=== PATIENT | female | born 1945 | race Caucasian/White ===

== ENCOUNTER → 2022-02-15 07:11 | Outpatient (CLI) | payer BC, SELFPAY ==
[2022-02-15 07:42] LABS: Add Manual Diff / Slide Review NO; Basophils Absolute Auto 0 /uL (0-100); Basophils Percent Auto 0.6 % (0-2); Eosinophils Absolute Auto 100 /uL (0-450); Hematocrit 42.4 % (36-46); Hemoglobin 14.5 g/dL (12.0-16.0); Lymphocytes Absolute Auto 1700 /uL (1100-4500); Lymphocytes Percent Auto 33.4 % (25-40); Mean Corpuscular HGB Conc 34.2 % (30-36); Mean Corpuscular Hemoglobin 33.1 PG (26-34); Mean Corpuscular Volume 96.9 fL (80-100); Monocytes Absolute Auto 300 /uL (0-900); Monocytes Percent Auto 6.4 % (3-14); Neutrophils Absolute Auto 3100 /uL (1500-7000); Neutrophils Percent Auto 58.6 % (50-75); Platelet Count 208 X10^3/uL (150-400); Red Blood Cell Count 4.37 X10^6/uL (4.0-5.2); White Blood Cell Count 5.2 X10^3/uL (4.5-11.0)
[2022-02-15 07:58] LABS: Alanine Aminotransferase 21 IU/L (<35); Albumin Globulin Ratio 1.7 (1.0-2.8); Alkaline Phosphatase 86 U/L (38-126); Aspartate Aminotransferase 29 IU/L (14-36); BUN Creatinine Ratio 32.2 (6-22); Bilirubin Total 0.5 mg/dL (0.2-1.3); Blood Urea Nitrogen 19 mg/dL (7-17); Carbon Dioxide 31 mmol/L (22-32); Chloride 108 mmol/L (98-107); Cholesterol 161 mg/dL (140-199); Estimated Glomerular Filt Rate > 60 mL/min (>60); Globulin 2.4 g/dL (1.7-4.1); Glucose 102 mg/dL (80-110); HDL Cholesterol 84 mg/dL (40-60); HEMOLYSIS < 15 (0-50); LDL Cholesterol Calculated 61 mg/dL (<100); Potassium 4.4 mmol/L (3.4-5.1); Sodium 142 mmol/L (137-145); Total Protein 6.4 g/dL (6.3-8.2); Triglycerides 79 mg/dL (35-150)
[2022-02-15 08:11] LABS: Vitamin D 25 Hydroxy (D3) 102 ng/mL (30.0-100.0)
[2022-02-15 08:13] LABS: Free T3, Triiodothyronine Free 2.46 pg/mL (2.77-5.27)
[2022-02-15 08:27] LABS: Thyroid Stimulating Hormone 3.22 uIU/mL (0.47-4.68)
== END ==
PROVIDERS: PCP Family Medicine; Referring Provider Family Medicine; Visit Provider Family Medicine
DX: E03.9 Hypothyroidism, unspecified (principal); E78.2 Mixed hyperlipidemia; I10 Essential (primary) hypertension; M85.80 Other specified disorders of bone density and structure, unspecified site; E55.9 Vitamin D deficiency, unspecified
CPT/HCPCS: 36415; 80053; 80061; 82306; 84439; 84443; 84481; 85025

== ENCOUNTER → 2022-04-05 11:33 | Outpatient (CLI) | payer BC, SELFPAY ==
--- NOTE | 2022-04-05 11:35 | DI.RAD.S_ITS ---
PROCEDURE: XR DEXA AXIAL SKELETON INDICATIONS: osteopenia COMPARISON: None. FINDINGS: This blank DEXA report has been sent in error by the PACS system. The correct and complete report will be forthcoming in 1-2 days. Thank you for your patience and understanding. Dictated by: Sb Ross M.D. on 04/05/2022 at 13:38 Transcribed by: MARK on 04/05/2022 at 13:38 Approved by: Sb Ross M.D. on 04/08/2022 at 15:18
== END ==
PROVIDERS: PCP Family Medicine; Referring Provider Family Medicine; Visit Provider Family Medicine
DX: Z13.820 Encounter for screening for osteoporosis (principal); M85.851 Other specified disorders of bone density and structure, right thigh; M85.852 Other specified disorders of bone density and structure, left thigh; Z78.0 Asymptomatic menopausal state; Z92.23 Personal history of estrogen therapy; Z90.710 Acquired absence of both cervix and uterus
CPT/HCPCS: 77080

== ENCOUNTER → 2022-07-09 15:18 | Outpatient (CLI) | payer BC, SELFPAY ==
--- NOTE | 2022-07-09 15:18 | DI.MG.S_ITS ---
BILATERAL DIGITAL SCREENING MAMMOGRAM 3D/2D WITH CAD: 07/09/2022 CLINICAL: Routine screening. No prior exams were available for comparison. There are scattered areas of fibroglandular density in both breasts (category b / 25%-50% glandular tissue). Current study was also evaluated with a Computer Aided Detection (CAD) system. There is an oval equal density asymmetry with a circumscribed margin in the left breast at 12 o'clock posterior depth. There also are grouped fine heterogeneous calcifications in the left breast central to the nipple anterior depth. No other significant masses, calcifications, or other findings are seen in either breast. IMPRESSION: INCOMPLETE: NEEDS ADDITIONAL IMAGING EVALUATION The oval equal density asymmetry in the left breast at 12 o'clock posterior depth is indeterminate. Additional views with possible ultrasound are recommended. The grouped fine heterogeneous calcifications in the left breast central to the nipple anterior depth are indeterminate. Magnification and lateromedial views are recommended. Based on the Tyrer Cuzick model (a risk assessment model) the patient's lifetime risk is 3.1% and her 10 year risk is 0.0%. According to the ACR, ACS, and NCCN guidelines, an annual breast MRI exam along with mammogram is recommended if the patient's lifetime risk is 20% or greater. This exam was interpreted at Station ID: [id number]. NOTE: For mammograms, a report in lay terms will be sent to the patient. Approximately 15% of breast malignancies will not be visualized mammographically. In the management of a palpable breast mass, a negative mammogram must not discourage biopsy of a clinically suspicious lesion. Electronically Signed By: Marilyn jones/shivani:07/10/2022 14:27:45 letter sent: Additional Imaging Needed ACR BI-RADS Category 0: Incomplete 3340F
== END ==
PROVIDERS: PCP Family Medicine; Referring Provider Family Medicine; Visit Provider Family Medicine
DX: Z12.31 Encounter for screening mammogram for malignant neoplasm of breast (principal)
CPT/HCPCS: 77063; 77067

== ENCOUNTER → 2022-08-05 11:58 | Outpatient (CLI) | payer BC, SELFPAY ==
--- NOTE | 2022-08-05 | DI.MG.S_ITS ---
UNILATERAL LEFT DIGITAL DIAGNOSTIC MAMMOGRAM 3D/2D WITH ADDITIONAL VIEWS: 08/05/2022 CLINICAL: Additional evaluation requested from prior study. Comparison is made to exam dated: 07/09/2022 mammogram - [facility]. There are scattered areas of fibroglandular density in the left breast (category b / 25%-50% glandular tissue). There is an oval equal density asymmetry with a circumscribed margin in the left breast at 12 o'clock posterior depth. This is seen in additional views. There also are grouped fine linear calcifications in the left breast central to the nipple anterior depth. No other significant masses or calcifications are seen in the breast. IMPRESSION: INCOMPLETE: NEEDS ADDITIONAL IMAGING EVALUATION The oval equal density asymmetry in the left breast at 12 o'clock posterior depth is indeterminate. A targeted ultrasound of the left breast is recommended and will be performed immediately following this exam. The grouped fine calcifications in the left breast central to the nipple anterior depth likely represent early secretory calcifications and are probably benign. A follow-up in 6 months is recommended. Based on the Tyrer Cuzick model (a risk assessment model) the patient's lifetime risk is 3.1% and her 10 year risk is 0.0%. According to the ACR, ACS, and NCCN guidelines, an annual breast MRI exam along with mammogram is recommended if the patient's lifetime risk is 20% or greater. This exam was interpreted at Station ID: [id number]. NOTE: For mammograms, a report in lay terms will be sent to the patient. Approximately 15% of breast malignancies will not be visualized mammographically. In the management of a palpable breast mass, a negative mammogram must not discourage biopsy of a clinically suspicious lesion. Electronically Signed By: Coleen llanos/:08/05/2022 12:47:31 ACR BI-RADS Category 0: Incomplete 3340F
--- NOTE | 2022-08-05 | DI.US.S_ITS ---
LIMITED ULTRASOUND OF LEFT BREAST AND AXILLA: 08/05/2022 CLINICAL: Patient returns today to evaluate a focal asymmetry in the left breast. Comparison is made to exams dated: 08/05/2022 mammogram and 07/09/2022 mammogram - [facility]. Color flow ultrasound of the left breast axilla was performed on the areas of interest. Holden scale images of the real-time examination were reviewed. There is an irregular mass in the left breast at 12 o'clock posterior depth. This irregular mass is hypoechoic with internal echoes and posterior acoustic enhancement. This likely correlates with mammography findings. IMPRESSION: PROBABLY BENIGN The irregular mass in the left breast resembles a fibroadenoma and is probably benign. A follow-up in 6 months is recommended. A follow-up left mammogram is also recommended to evaluate the linear calcifications in the left breast. This exam was interpreted at Station ID: [id number]. Electronically Signed By: Coleen llanos/:08/05/2022 13:16:49 letter sent: Followup Recommended Ultrasound BI-RADS: 3 Probably benign
== END ==
PROVIDERS: PCP Family Medicine; Referring Provider Family Medicine; Visit Provider Family Medicine
DX: R92.8 Other abnormal and inconclusive findings on diagnostic imaging of breast (principal); N63.25 Unspecified lump in the left breast, overlapping quadrants
CPT/HCPCS: 76642; 77065; G0279

== ENCOUNTER → 2022-09-11 12:01 | Outpatient (CLI) | payer BC, SELFPAY ==
[2022-09-11 14:35] LABS: TSH w/ Reflex to FT4 0.09 uIU/mL (0.47-4.68)
[2022-09-11 16:04] LABS: Free T4, Direct Thyroxine 1.78 ng/dL (0.78-2.19)
== END ==
PROVIDERS: PCP Family Medicine; Referring Provider Family Medicine; Visit Provider Family Medicine
DX: E03.9 Hypothyroidism, unspecified (principal)
CPT/HCPCS: 36415; 84439; 84443

== ENCOUNTER 2022-09-13 08:11 | Emergency (ER) | payer BC, SELFPAY ==
[2022-09-13] VITALS (11 sets, daily range): BP systolic 124–136; BP diastolic 54–72; PULSE 48–73; RESP 12–18; TEMP 36; O2SAT 96–100; BMI 19.5
--- NOTE | 2022-09-13 08:24 | ED_ITS ---
HPI - Fall General Chief Complaint: Fall Stated Complaint: Fall Time Seen by Provider: 09/13/22 08:18 Source: patient and EMS Mode of arrival: EMS History of Present Illness HPI Narrative: Patient is a 77-year-old female history of hypothyroidism presenting after mechanical ground level fall this morning. She says it was dark she was walking she tripped over her husky while carrying a glass. She landed directly on top of the last in the center of her chest over her sternum. She did not hit her head she did not lose consciousness she is not on antiplatelet or anticoagulation medications. She has no other injury. It hurts significantly to touch and to breathe. She was not dizzy or lightheaded prior to the fall. She has no hip pain or leg pain. Related Data Home Medications Medication Instructions Recorded Confirmed Krill Oil 1 tab PO DAILY 02/11/22 08/28/22 Spirulina 1 cap PO DAILY 02/11/22 08/28/22 Zeaxanthin 5%-Lutein 25% 1 tab PO DAILY 02/11/22 08/28/22 coenzyme Q10 300 mg capsule 300 mg PO DAILY 02/11/22 08/28/22 oprganixx multivitamin PO 08/28/22 Previous Rx's Medication Instructions Recorded levothyroxine 100 mcg tablet 100 mcg PO DAILY #90 tabs 03/28/22 estradiol 0.01% (0.1 mg/gram) 1 g vaginal 2XW #42.5 grams 04/18/22 vaginal cream hydrocodone 5 mg-acetaminophen 325 1 tab PO Q6H PRN pain #10 tabs 09/13/22 mg tablet Allergies Allergy/AdvReac Type Severity Reaction Status Date / Time No Known Drug Allergies Allergy Verified 08/28/22 13:51 Patient History Medical History Benign familial tremor (~2001) Carpal tunnel syndrome (~1994) Chicken pox Frequent UTI (~2015) Hyperlipidemia, mixed Hypertension (~2013) Hypothyroidism (~2015) Irritable bowel syndrome (~2008) Measles Melanoma (~2017) Mumps Osteopenia (~2003) Vitamin D deficiency Surgical History Anesthesia History of foot surgery (~1995) History of shoulder surgery (~11/2021) History of surgery on wrist (~10/2003) Family History Father Stroke History of heart attack Diabetes mellitus History of heart disease Hyperlipidemia Hypertension Mother Cancer Hyperlipidemia Hypertension Brother History of heart disease Hypertension Family/Other Hypothermia Family/Other History of being obese History of heart disease Anxiety Social History Smoking Status: Never smoker Smoking Status: Never smoker Exam Initial Vital Signs Initial Vital Signs: Vital Signs Temperature 96.8 F L 09/13/22 08:19 Pulse Rate 48 L 09/13/22 08:19 Respiratory Rate 18 09/13/22 08:19 Blood Pressure 136/66 09/13/22 08:19 Pulse Oximetry 100 09/13/22 08:19 Oxygen Delivery Method 09/13/22 08:19 GENERAL: Alert pleasant 77-year-old female and in no acute distress. HEENT: Head atraumatic,EOMI, pupils reactive, face symmetric, moist mucous membranes CARDIOVASCULAR: Regular rate and rhythm without murmurs, rubs or gallops. Pain over sternum no contusion no crepitation no paradoxical movement hurts debris RESPIRATORY: Breath sounds equal bilaterally, no wheezes rales or rhonchi. ABDOMEN: Soft, nontender. Normoactive bowel sounds all 4 quadrants. No guarding or rebound. EXTREMITIES: Normal range of motion, no clubbing or edema. 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 Course Orders Ordered: Discontinued Medications Hydrocodone Bitart/Acetaminophen (Hydrocodone/Acet 5/325 Tablet) 1 tab PO NOW ONE Stop: 09/13/22 08:28 Last Admin: 09/13/22 08:33 Dose: 1 tab Documented By: TRISTA Sodium Chloride (Normal Saline 0.9%) 1,000 mls @ 1,000 mls/hr IV CONT JAIR Last Infusion: 09/13/22 11:56 Dose: 0 mls/hr Documented By: Admin: 09/13/22 11:20 Dose: 1,000 mls/hr Documented By: TRISTA Vital Signs Vital signs: Vital Signs - 8 hr 09/13/22 08:19 09/13/22 08:41 09/13/22 10:39 Temperature 96.8 F L Pulse Rate 48 L 50 L 80 Respiratory Rate 18 18 18 Blood Pressure 136/66 130/64 130/70 Pulse Oximetry 100 99 98 Oxygen Delivery Method Room Air Room Air MDM - Fall Lab Data Result diagrams: 09/13/22 10:55 09/13/22 10:55 Labs: Lab Results 09/13/22 09/13/22 Range/Units 10:55 10:55 WBC 12.0 H (4.5-11.0) X10^3/uL RBC 4.23 (4.0-5.2) X10^6/uL Hgb 13.8 (12.0-16.0) g/dL Hct 40.6 (36-46) % MCV 95.9 (80-100) fL MCH 32.5 (26-34) PG MCHC 33.9 (30-36) % RDW 13.7 (11.6-14.8) % Plt Count 199 (150-400) X10^3/uL Neut % (Auto) 82.9 H (50-75) % Lymph % (Auto) 11.5 L (25-40) % [place] % (Auto) 5.4 (3-14) % Eos % (Auto) 0.1 L (2-4) % Baso % (Auto) 0.1 (0-2) % Neut # (Auto) 92445 H (6127-4933) /uL Lymph # (Auto) 1400 (0689-0557) /uL [place] # (Auto) 600 (0-900) /uL Eos # (Auto) 0 (0-450) /uL Baso # (Auto) 0 (0-100) /uL Sodium 140 (137-145) mmol/L Potassium 3.6 (3.4-5.1) mmol/L Chloride 104 (98-107) mmol/L Carbon Dioxide 32 (22-32) mmol/L BUN 16 (7-17) mg/dL Creatinine 0.61 (0.52-1.04) mg/dL Estimated GFR > 60 (>60) mL/min BUN/Creatinine Ratio 26.2 H (6-22) Glucose 109 (80-110) mg/dL Calcium 8.9 (8.4-10.2) mg/dL Total Bilirubin 0.5 (0.2-1.3) mg/dL AST 35 (14-36) IU/L ALT 24 (<35) IU/L Alkaline Phosphatase 86 (38-126) U/L Total Creatine Kinase 96 (30-135) U/L CK-MB (CK-2) TNP CK-MB (CK-2) Rel Index TNP Troponin I < 0.012 (0.01-0.034) ng/mL Total Protein 6.8 (6.3-8.2) g/dL Albumin 3.9 (3.5-5.0) g/dL Globulin 2.9 (1.7-4.1) g/dL Albumin/Globulin Ratio 1.3 (1.0-2.8) Lipase 136 (23-300) U/L Imaging Data Chest x-ray: Radiologist's Impression: XRay Report Signed Patient: Jerzy Correa MR#: [id number] : 1945 Acct:[id number] Age/Sex: 77 / F Date of Service: 09/13/22 Loc: ED Accession Number: [id number] ?? Procedure: XR chest 2V Ordering Provider: Mallory Priest D.O. PROCEDURE:? XR CHEST 2V ? INDICATIONS:? fall severe sternal pain ? TECHNIQUE:? 2 views of the chest were acquired.? ? COMPARISON:? None. ? FINDINGS:? ? Surgical changes and devices:? Partially visualized left humeral fixation. ? Lungs and pleura:? Lungs are clear.? No pleural effusions or pneumothorax.? ? Mediastinum:? Mediastinal contours are normal.? Heart size is normal.? ? Bones and chest wall:? No suspicious bony abnormalities.? Soft tissues appear unremarkable.? ? IMPRESSION:? No acute pulmonary process. ? ? Dictated by: Zuly Sanchez M.D. on 09/13/2022 at 9:11 ? ? Approved by: Zuly Sanchez M.D. on 09/13/2022 at 9:11? CT scan - chest: Radiologist's Impression: Lungs are clear. No visualized renal osseous or parasternal soft tissue abnormality. Bones no suspicious bony lesions MDM Narrative Medical decision making narrative: Patient presents after mechanical ground level fall with severe sternal pain. After she landed on glass. Chest x-ray is negative no sign of sternal fracture. She received 1 [place]. Chest x-ray is negative however she is still in quite a bit of pain. CT does not show any abnormality. Differential diagnosis includes contusion fracture cardiac contusion. At this time I suspect contusion hemodynamically stable , with supportive care Patient was discharged however she would a syncopal episode as LOREE was wheeling her out to the car. He was immediately brought back. She did start responding glucose 99 heart rate 44 blood pressure 122 over 86. She was given [place] but it was quite awhile ago no need for Narcan at this time. Blood work does show she has leukocytosis of 12 she did not urinate for us. She actually quickly responded when he tried to sit her up and take off her shirt. She was in quite a bit of pain pain from her sternum. Ultimately that she was responding to the narcotics. She had no issues breathing no need for Narcan. She was able to ambulate in the ED without any difficulty. Orthostatics were negative. Discussion with patient and to break the hydrocodone and half before giving it to her. Discharge Plan Departure Patient Disposition: Home Clinical Impression: Pain of sternum, Syncope Instructions: DI for Syncope in Adults (Fainting), Contusion, How to Prevent Falls Activity Restrictions/Additional Instructions: *You have been diagnosed with chest contusion *What to do: At this time move slowly ice as needed. This will hurt but hopefully gets Betadine next couple of days Use incentive spirometer about 10 times an hour while awake to help prevent pneumonia *Continue to take medications as directed -->SENT TO [facility] [place] 1 tablet every 6 hours if needed for severe pain-- take 1/2 tablet Motrin 600 mg every 6 hours if needed [id number] *Follow up with your primary care provider in 2-3 days or call [phone] *Return to ER if you should have increasing pain shortness of breath or any new, worsening or concerning symptoms CONTROLLED SUBSTANCE DISCHARGE (Narcotoic/benzodiazepine/Flexeril/Phenergan) 1. You have been prescribed narcotic medications, it does have acetaminophen/Tylenol/paracetamol in it, DO NOT TAKE MORE THAN 4,00mg in 24 hours of Tylenol. TRAMADOL DOES NOT CONTAIN TYLENOL 2. Please understand that we cannot provide further refills of narcotics, benzodiazepines or controlled substances through the ED and her pain management will need to be through your provider. 3. While on these medications you cannot drive or operate heavy machinery. 4. You cannot sign legal documents or perform any duties such as this. 5. As long as you're taking opiate pain medications he should also be taking a stool softener such as Colace, Dulcolax, MiraLAX or prune juice, to help avoid constipation. Prescriptions: New hydrocodone-acetaminophen 5-325 mg tablet 1 tab PO Q6H PRN (Reason: pain) Qty: 10 0RF No Action estradiol 0.01 % (0.1 mg/gram) cream 1 g vaginal 2XW Qty: 42.5 2RF Zeaxanthin 5%-Lutein 25% 1 tab PO DAILY Krill Oil 800 mg 1 tab PO DAILY Rx Instructions: EPA/DHA 140mg coenzyme Q10 300 mg capsule 300 mg PO DAILY Spirulina 3,000 mg 1 cap PO DAILY levothyroxine 100 mcg tablet 100 mcg PO DAILY Qty: 90 3RF oprganixx multivitamin PO Rx Instructions: Two tabs by mouth daily Referrals: Ney Fajardo DO [Primary Care Provider] - Stand Alone Forms: Patient Portal/API
--- NOTE | 2022-09-13 08:27 | DI.RAD.S_ITS ---
PROCEDURE: XR CHEST 2V INDICATIONS: fall severe sternal pain TECHNIQUE: 2 views of the chest were acquired. COMPARISON: None. FINDINGS: Surgical changes and devices: Partially visualized left humeral fixation. Lungs and pleura: Lungs are clear. No pleural effusions or pneumothorax. Mediastinum: Mediastinal contours are normal. Heart size is normal. Bones and chest wall: No suspicious bony abnormalities. Soft tissues appear unremarkable. IMPRESSION: No acute pulmonary process. Dictated by: Zuly Sanchez M.D. on 09/13/2022 at 9:11 Approved by: Zuly Sanchez M.D. on 09/13/2022 at 9:11
[2022-09-13] MEDS: HYDROCODONE/ACET 5/325 TABLET 1 TAB PO (08:33)
--- NOTE | 2022-09-13 09:22 | DI.CT.S_ITS ---
PROCEDURE: CT CHEST WO CON INDICATIONS: fall pain sternum TECHNIQUE: Noncontrast 5 mm thick sections acquired from the pulmonary apices to the posterior costophrenic angles. 1 mm lung window, 5 mm thick coronal and sagittal and 7 mm axial MIP reformats were then acquired. For radiation dose reduction, the following was used: automated exposure control, adjustment of mA and/or kV according to patient size. COMPARISON: None. FINDINGS: Image quality: Excellent. Lungs and pleura: No acute air space opacities. No pleural effusions or pneumothorax. Central and peripheral airways are patent and normal in caliber. Mediastinum: Heart size is normal. No pericardial effusion. No mediastinal adenopathy by size criteria. Thoracic aorta and central pulmonary arteries are normal in size. Esophagus is normal in caliber. No hiatal hernia. Bones and chest wall: No suspicious bony lesions. No vertebral body compression fractures. No axillary or supraclavicular adenopathy by size criteria. Thyroid gland is unremarkable. Left humeral fixation is present. Abdomen: Visualized upper abdominal solid organs and bowel loops appear normal in the absence of contrast. IMPRESSION: Lungs are clear. No visualized renal osseous or parasternal soft tissue abnormality. Dictated by: Zuly Sanchez M.D. on 09/13/2022 at 10:05 Approved by: Zuly Sanchez M.D. on 09/13/2022 at 10:07
[2022-09-13] MEDS: SODIUM CHLORIDE 0.9% 1,000 ML 1000 ML IV (11:20)
[2022-09-13 11:21] LABS: Add Manual Diff / Slide Review NO; Basophils Absolute Auto 0 /uL (0-100); Basophils Percent Auto 0.1 % (0-2); Eosinophils Absolute Auto 0 /uL (0-450); Eosinophils Percent Auto 0.1 % (2-4); Hematocrit 40.6 % (36-46); Hemoglobin 13.8 g/dL (12.0-16.0); Lymphocytes Absolute Auto 1400 /uL (1100-4500); Lymphocytes Percent Auto 11.5 % (25-40); Mean Corpuscular HGB Conc 33.9 % (30-36); Mean Corpuscular Hemoglobin 32.5 PG (26-34); Mean Corpuscular Volume 95.9 fL (80-100); Monocytes Absolute Auto 600 /uL (0-900); Monocytes Percent Auto 5.4 % (3-14); Neutrophils Absolute Auto 10000 /uL (1500-7000); Neutrophils Percent Auto 82.9 % (50-75); Platelet Count 199 X10^3/uL (150-400); Red Blood Cell Count 4.23 X10^6/uL (4.0-5.2); Red Cell Distribution Width 13.7 % (11.6-14.8)
[2022-09-13 11:22] LABS: Alanine Aminotransferase 24 IU/L (<35); Albumin 3.9 g/dL (3.5-5.0); Albumin Globulin Ratio 1.3 (1.0-2.8); Alkaline Phosphatase 86 U/L (38-126); Aspartate Aminotransferase 35 IU/L (14-36); BUN Creatinine Ratio 26.2 (6-22); Bilirubin Total 0.5 mg/dL (0.2-1.3); Blood Urea Nitrogen 16 mg/dL (7-17); Calcium 8.9 mg/dL (8.4-10.2); Carbon Dioxide 32 mmol/L (22-32); Chloride 104 mmol/L (98-107); Creatine Kinase 96 U/L (30-135); Estimated Glomerular Filt Rate > 60 mL/min (>60); Globulin 2.9 g/dL (1.7-4.1); Glucose 109 mg/dL (80-110); HEMOLYSIS < 15 (0-50); Lipase 136 U/L (23-300); Potassium 3.6 mmol/L (3.4-5.1); Sodium 140 mmol/L (137-145); Total Protein 6.8 g/dL (6.3-8.2)
[2022-09-13 11:34] LABS: Troponin I < 0.012 ng/mL (0.01-0.034)
--- NOTE | 2022-09-13 12:06 | PC.NURSE ---
pt stood up for a few minutes then felt flushed and sat back into bed, ns 1liter completed. pt eating food fruit and cheese and will then repeat ambulation trial and orthostatic vitals
== END 2022-09-13 13:00 | disposition home or self-care (01) ==
PROVIDERS: Emergency Provider Emergency Medicine; PCP Family Medicine
DX: S20.214A Contusion of middle front wall of thorax, initial encounter (principal); R55 Syncope and collapse; W01.198A Fall on same level from slipping, tripping and stumbling with subsequent striking against other object, initial encounter
CPT/HCPCS: 36415; 71046; 71250; 80053; 82550; 83690; 84484; 85025; 99284; 99285

== ENCOUNTER → 2022-11-18 07:35 | Outpatient (CLI) | payer BC, SELFPAY ==
[2022-11-18 09:23] LABS: Vitamin D 25 Hydroxy (D3) 48.4 ng/mL (30.0-100.0)
[2022-11-18 09:37] LABS: TSH w/ Reflex to FT4 1.95 uIU/mL (0.47-4.68)
== END ==
PROVIDERS: PCP Family Medicine; Referring Provider Family Medicine; Visit Provider Family Medicine
DX: E03.9 Hypothyroidism, unspecified (principal); E55.9 Vitamin D deficiency, unspecified; M85.80 Other specified disorders of bone density and structure, unspecified site
CPT/HCPCS: 36415; 82306; 84443

== ENCOUNTER → 2023-01-20 10:37 | Outpatient (CLI) | payer BC, SELFPAY ==
[2023-01-20 11:31] LABS: Add Manual Diff / Slide Review NO; Basophils Absolute Auto 0 /uL (0-100); Basophils Percent Auto 0.4 % (0-2); Eosinophils Absolute Auto 0 /uL (0-450); Eosinophils Percent Auto 0.8 % (2-4); Hematocrit 39.9 % (36-46); Hemoglobin 13.5 g/dL (12.0-16.0); Lymphocytes Absolute Auto 1900 /uL (1100-4500); Mean Corpuscular HGB Conc 33.9 % (30-36); Mean Corpuscular Hemoglobin 32.6 PG (26-34); Mean Corpuscular Volume 96.1 fL (80-100); Monocytes Absolute Auto 500 /uL (0-900); Monocytes Percent Auto 9.1 % (3-14); Neutrophils Absolute Auto 3000 /uL (1500-7000); Neutrophils Percent Auto 54.7 % (50-75); Platelet Count 245 X10^3/uL (150-400); Red Blood Cell Count 4.15 X10^6/uL (4.0-5.2); White Blood Cell Count 5.4 X10^3/uL (4.5-11.0)
[2023-01-20 12:09] LABS: Alanine Aminotransferase 19 IU/L (<35); Albumin 3.9 g/dL (3.5-5.0); Albumin Globulin Ratio 1.4 (1.0-2.8); Alkaline Phosphatase 91 U/L (38-126); Aspartate Aminotransferase 25 IU/L (14-36); BUN Creatinine Ratio 35.8 (6-22); Bilirubin Total 0.3 mg/dL (0.2-1.3); Blood Urea Nitrogen 19 mg/dL (7-17); Calcium 8.6 mg/dL (8.4-10.2); Carbon Dioxide 28 mmol/L (22-32); Chloride 105 mmol/L (98-107); Cholesterol 156 mg/dL (140-199); Estimated Glomerular Filt Rate > 60 mL/min (>60); Globulin 2.7 g/dL (1.7-4.1); Glucose 77 mg/dL (80-110); HDL Cholesterol 59 mg/dL (40-60); HEMOLYSIS < 15 (0-50); LDL Cholesterol Calculated 71 mg/dL (<100); Potassium 4.2 mmol/L (3.4-5.1); Sodium 138 mmol/L (137-145); Total Protein 6.6 g/dL (6.3-8.2); Triglycerides 129 mg/dL (35-150)
[2023-01-20 12:19] LABS: Vitamin D 25 Hydroxy (D3) 49.5 ng/mL (30.0-100.0)
[2023-01-20 12:34] LABS: TSH w/ Reflex to FT4 1.47 uIU/mL (0.47-4.68)
[2023-01-20 12:51] LABS: Vitamin B12 696 pg/mL (239-931)
== END ==
PROVIDERS: PCP Family Medicine; Referring Provider Family Medicine; Visit Provider Family Medicine
DX: E53.8 Deficiency of other specified B group vitamins (principal); E03.9 Hypothyroidism, unspecified; E55.9 Vitamin D deficiency, unspecified; E78.2 Mixed hyperlipidemia; I10 Essential (primary) hypertension; M85.80 Other specified disorders of bone density and structure, unspecified site
CPT/HCPCS: 36415; 80053; 80061; 82306; 82607; 84443; 85025

== ENCOUNTER → 2023-02-11 08:47 | Outpatient (CLI) | payer BC, SELFPAY ==
--- NOTE | 2023-02-11 08:48 | DI.MG.S_ITS ---
UNILATERAL LEFT DIGITAL DIAGNOSTIC MAMMOGRAM 3D/2D: 02/11/2023 CLINICAL: Short term follow up for the left breast. Comparison is made to exams dated: 08/05/2022 ultrasound, 08/05/2022 mammogram, and 07/09/2022 mammogram - [facility]. There are scattered areas of fibroglandular density in the left breast (category b / 25%-50% glandular tissue). There is a 0.8 cm oval equal density asymmetry with a circumscribed margin in the left breast at 12 o'clock posterior depth. This is seen in additional views. There also is a stable dystrophic heterogeneous calcification in the left breast central to the nipple anterior depth. No other significant masses or calcifications are seen in the breast. IMPRESSION: INCOMPLETE: NEEDS ADDITIONAL IMAGING EVALUATION The 0.8 cm oval equal density asymmetry in the left breast at 12 o'clock posterior depth is indeterminate. An ultrasound is recommended. The stable dystrophic heterogeneous calcification in the left breast central to the nipple anterior depth is probably benign. A follow-up in 6 months is recommended. A targeted ultrasound of the left breast is recommended and will be performed immediately following this exam. Based on the Tyrer Cuzick model (a risk assessment model) the patient's lifetime risk is 3.1% and her 10 year risk is 0.0%. According to the ACR, ACS, and NCCN guidelines, an annual breast MRI exam along with mammogram is recommended if the patient's lifetime risk is 20% or greater. This exam was interpreted at Station ID: [id number]. NOTE: For mammograms, a report in lay terms will be sent to the patient. Approximately 15% of breast malignancies will not be visualized mammographically. In the management of a palpable breast mass, a negative mammogram must not discourage biopsy of a clinically suspicious lesion. Electronically Signed By: Gonzales Kaba M.D. lc/:02/11/2023 10:29:29 ACR BI-RADS Category 0: Incomplete 3340F
--- NOTE | 2023-02-11 08:48 | DI.US.S_ITS ---
ULTRASOUND OF LEFT BREAST AND AXILLA: 02/11/2023 CLINICAL: Patient returns today to evaluate an asymmetry in the left breast. Comparison is made to exams dated: 02/11/2023 mammogram, 08/05/2022 ultrasound, 08/05/2022 mammogram, 07/09/2022 mammogram - [facility], and 01/23/2021 mammogram - [facility]. Ultrasound of the left breast axilla was performed. There is a 1 cm x 0.8 cm x 0.9 cm irregular mass in the left breast at 12 o'clock posterior depth 2 cm from the nipple. This irregular mass is hypoechoic. This abnormality is more prominent and correlates with mammography findings. There also is a 0.7 cm x 0.4 cm x 0.4 cm oval mass with a circumscribed margin in the left breast at 12 o'clock posterior depth 3 cm from the nipple. This oval mass is hypoechoic. No significant abnormalities were seen sonographically in the left axilla. IMPRESSION: SUSPICIOUS OF MALIGNANCY The 1 cm x 0.8 cm x 0.9 cm irregular mass in the left breast at 12 o'clock posterior depth is at a moderate suspicion for malignancy. An ultrasound guided biopsy is recommended. This is more prominent than prior imaging and is more likely to be the mammographic correlate, which is better seen today. The 0.7 cm x 0.4 cm x 0.4 cm oval mass in the left breast at 12 o'clock posterior depth is probably benign. A follow-up mammogram and ultrasound in 6 months are recommended. This is stable from prior ultrasound. Dystrophic heterogenous calcifications seen on mammogram, probably benign, can also be followed in 6 months. No significant abnormalities were seen sonographically in the left axilla. This exam was interpreted at Station ID: [id number]. Electronically Signed By: Gonzales Kaba M.D. lc/:02/11/2023 10:34:48 letter sent: Biopsy Required Ultrasound BI-RADS: 4b Moderate suspicion of malignancy
== END ==
PROVIDERS: PCP Family Medicine; Referring Provider Family Medicine; Visit Provider Family Medicine
DX: R92.8 Other abnormal and inconclusive findings on diagnostic imaging of breast (principal); N63.25 Unspecified lump in the left breast, overlapping quadrants
CPT/HCPCS: 76642; 77065; G0279